=== PATIENT | male | born 1945 | race Caucasian/White ===

== ENCOUNTER → 2016-08-24 | Day surgery (SDC) | payer OTHER ==
[~2016-08-24] VITALS: Ht 165.1 cm; Wt 60.0 kg
[~2016-08-24] MED LIST: AMLODIPINE BESYLATE 5 MG TAB ONE; AMOX875T PO; ASPI81TA28 PO; CHOL100010 PO; FENTANYL CITRATE INJ 50 MCG/1 ML 2 ML VIAL ONE; FLUT1AER5 INH; GUAI1TAB75 PO; IPRASOL4 INH; LISI-729 PO; LISINOPRIL 5 MG TAB ONE; MIDAZOLAM HCL 1 MG/ML 2ML VIAL ONE; MULT-920 PO; OMEG10007 PO; PRED20TA PO; PSEU60TA80 PO; ROFL1TAB5 PO; SIMV40TA2 PO; TIOTCAP INH; VNTHFA/IN INH; ZNTT/150 PO
[2016-08-24 07:17] VITALS: BP 145/84; PULSE 73; TEMP 36.4; O2SAT 96; Ht 165.1 cm; Wt 60.0 kg
--- NOTE | 2016-08-24 09:03 | History & Physical Bridge Note ---
H&P Re-Evaluation Bridge Note: I have examined the patient, reviewed the History & Physical and in the interval since the performance of the History & Physical I have noted the following changes of clinical significance: No changes noted
--- NOTE | 2016-08-24 09:04 | Procedure Note ---
Pre-Mod Sedation Assessment General Date of Moderate Sedation: August 24, 2016. Vital Signs: Vital Signs Past 12 Hours Date Time Temp Pulse Resp B/P Pulse Ox O2 Delivery O2 Flow Rate FiO2 08/24/16 07:17 36.4 73 16 145/84 96 Room Air Review Cardiovascular: regular rate, rhythm, no edema, + systolic murmur Abdomen: normal bowel sounds, non tender, soft Lungs: chest non-tender, lungs clear, normal breath sounds Pre-Sedation Airway Assessment Oral Cavity: Dentures Short Thick Neck: No Hx of Sleep Apnea: No Smoking Status: Current Every Day Smoker Mallampati Classification: Class II ASA Classification: Class III Procedure Planning Contraindications-for Mod Sed: None Yes Notes The planned sedation has been discussed with the patient and consent obtained. I have identified the patient, determined the appropriateness of sedation and have assessed the patient immediately prior to the procedure. All medicine(s) and interventions are by my order.
--- NOTE | 2016-08-24 09:05 | Procedure Note ---
Post-Mod Sedation Assessment General Date of Moderate Sedation August 24, 2016. Vital Signs: Vital Signs Past 12 Hours Date Time Temp Pulse Resp B/P Pulse Ox O2 Delivery O2 Flow Rate FiO2 08/24/16 07:17 36.4 73 16 145/84 96 Room Air Review - Discharge Criteria Vital Signs Stable: Yes Alert/Oriented/Conversant: Yes Returned to Baseline Mental St: Yes Nausea Absent/Minimal: Yes Pain/Discomfort/Absent/Minimal: Yes Normal/Baseline Respirations: Yes Active Bleeding?: No Pt Received D/C Instructions: Yes Prescriptions Given: None Specific Proced. D/C Criteria Distal Pulses Present (Cardiac: Yes Groin site assessed-Card Cath: Yes Voided Prior To Discharge: Yes Discharged Patients Adult Escort/Transportation: Yes
--- NOTE | 2016-08-24 09:29 | Cardiac Catheterization ---
Procedure Note Procedure Date August 24, 2016. Pre-Procedure Diagnosis Angina, CAD, Valvular Disease AUC Score 8 Post-Procedure Diagnosis Severe CAD Procedure(s) Performed Coronary Angiography (Moderate sedation, Start time 0819, Stop time 0848) Stone Decorator Dr. Espinal Orthotic/Prosthetic Clinician(s) Fan COMMERCIAL SALES SPECIALIST, Sedation ROE Caballero Estimated Blood Loss 5cc Medication(s) Fentanyl, Versed, Lidocaine 1% Summary of Findings 85% mid LAD in-stent restenosis. 70% mid PDA 100% chronic diagonal stenosis. Hemodynamics Rest Ao: 157/66/101 Final Ao: 164/64/103 LV: N/A Recommendations CABG, valve replacement Specimens None Radiation Exposure (mGy) 313 Contrast (mls) 85 Procedural Complication(s) None Disposition City Treasurer Holding/Recovery ACC Data Cardiac Status Clinical evaluation leading to the procedure CAD Presntation: Stable angina Anginal Classification: CCS II Heart Failure: No Cardiogenic Shock w/in 24Hrs: No Cardiac Arrest w/in 24Hrs: No Imaging studies past 6 months: Yes Stress studies past 6 months: Yes Stress Testing w/SPECT MPI: Yes - Positive, Risk/Extent of Ischemia (High) Cardiac CTA: No Coronary Anatomy Dominant: Right Left Main (% Stenosis): Normal LAD (% Stenosis): Ostial (10%), Proximal (30%), Mid (60% in stent restenosis followed by 85% ), Distal (10%) D1 (% Stenosis): Ostial (100% with MARVIN 1 flow) Circumflex (% Stenosis): Ostial (small vessel, 40%), Proximal (10%), Mid (60%) , Distal (10%) RCA (% Stenosis): Ostial (High anterior origin. 0%), Proximal (10%), Mid (20%) , Distal (30% in-stent restenosis) R PDA (% Stenosis): Ostial (10%), Proximal (10%), Mid (70%), Distal (10% diffuse) R PL1 (% Stenosis): Ostial (Small vessel with mild luminal irregularities, 10%) Ramus (% Stenosis): Ostial (0%), Mid (10%), Distal (10%), Proximal (20%) Diagnostic Status: Elective Closure Device Percutaneous Entry Location: Femoral Closure Device: Mynx Recommendations: CABG, valve replacement Intraprocedure Events Significant Dissection: No Perforation: No
--- NOTE | 2016-08-24 09:49 | Discharge Instructions ---
Discharge Instructions Procedure Procedure Date: August 24, 2016. Reason for Visit: *Dr Espinal To Do* Abnormal Stress Test. Discharge Discharge Date: August 24, 2016. Last Recorded Wt (Kilograms): 60 Anesthesia Post Anesthesia Instructions: If you have had General Anesthesia or IV Sedation: * Do not drive today. * Resume driving when surgeon permits. * Do not make important decisions or sign legal documents today. * Call surgeon for: 1. Temperature elevations greater than 101 degrees F. 2. Uncontrollable pain. 3. Excessive bleeding. 4. Persistent nausea and vomiting. 5. Medication intolerance (nausea, vomiting or rash). * For nausea and vomiting use only clear liquids such as: tea, soda, bouillon until nausea subsides, then gradually increase diet as tolerated. * If you have any concerns or questions, call your surgeon's office. If physician is unavailable and it is an emergency, call 911 or go to the nearest emergency room. Instructions Activity Recommendations: limitations as noted below Return to School/Work: with the following limitations Recommended Home Diet: resume previous diet Allergies: Coded Allergies: Baclofen (Verified Allergy, Unknown, HIVES/RASH, 06/02/15) Clarithromycin (Verified Allergy, Unknown, RASH/HIVES, 06/02/15) Erythromycin (Verified Allergy, Unknown, FEVER AND BODY ACHES, 06/02/15) Isosorbide (Verified Allergy, Unknown, RASH/FEVER, 06/02/15) Uncoded Allergies: STEROID (Allergy, Unknown, HIVES, 05/27/15) Provider Instructions ACTIVITY RECOMMENDATIONS: It is common to feel weak and fatigue for a few days. * Do not drive or operate any motorized equipment for the next three days. * Limit stair usage (2 or 3 trips a day only) for the next three days. * Do not lift anything heavier than 10 pounds for the next three days. * Do not engage in vigorous exercise or any sports for the next five days. * You may shower the day after your procedure, but do not immerse the area for three days. Cleanse the site gently with soap and water. SPECIAL CARE INSTRUCTIONS: * You may replace the pressure dressing or band-aid the morning after the procedure. * After your procedure, it is normal to have a small bruise or small lump at the site. Examine your site daily for any change in the bruise or lump, redness, swelling, drainage or numbness. Notify your doctor if any change. BLEEDING: * If there is a small amount of bleeding at the site, lie down and apply firm pressure with a clean cloth for ten minutes. When the bleeding stops, lie quietly keeping the procedure limb straight for six hours. Notify your doctor as soon as possible. * If the bleeding does not stop after ten minutes or if there is a large amount of bleeding or spurting, call 911 immediately. Continue to lie down and hold firm pressure until help arrives. SKIN IRRITATION: * You may experience some redness and/or swelling in the area where radiation was administered. If any skin irritation occurs, please contact your family physician. FOLLOW UP VISIT: Keep any scheduled doctor appointments. Follow Up Follow-up with: Jesse Castanon PA-C as scheduled. Gilles Cabrales Recommendations: Call your doctor if: * Temperature above 101 degrees * Pain not relieved by pain medicine ordered * There is increased drainage or redness from any incision * You have any unanswered questions or concerns. Your Doctors Instructions noted above were prepared by provider Leo Espinal. Patient Signature Section: Patient Instructions Signature Page Bret Bacon Patient (or Guardian) Signature/Date: I have read and understand the instructions given to me by my caregivers. Caregiver/RN/Doctor Signature/Date: The above-named patient and/or guardian has received patient instructions on this date. + Original Patient Signature Page (only) stays with chart. Please make copy for patient.
[2016-08-24 12:30] VITALS: BP 141/68; PULSE 71; O2SAT 96
== END | disposition home or self-care (01) ==
LOC: C.CATH 06:50
PROVIDERS: ATTEND Internal Medicine Cardiovascular Disease
DX: I25.709 Atherosclerosis of coronary artery bypass graft(s), unspecified, with unspecified angina pectoris (principal); Q23.1 Congenital insufficiency of aortic valve; I05.2 Rheumatic mitral stenosis with insufficiency; K21.9 Gastro-esophageal reflux disease without esophagitis; J44.9 Chronic obstructive pulmonary disease, unspecified; I10 Essential (primary) hypertension; E78.5 Hyperlipidemia, unspecified; E55.9 Vitamin D deficiency, unspecified; F17.200 Nicotine dependence, unspecified, uncomplicated; Z82.49 Family history of ischemic heart disease and other diseases of the circulatory system; Z79.82 Long term (current) use of aspirin; Z79.899 Other long term (current) drug therapy

== ENCOUNTER → 2016-10-21 | Outpatient (CLI) | payer OTHER ==
[~2016-10-21] MED LIST changes: -AMLODIPINE BESYLATE 5 MG TAB ONE; -FENTANYL CITRATE INJ 50 MCG/1 ML 2 ML VIAL ONE; -LISINOPRIL 5 MG TAB ONE; -MIDAZOLAM HCL 1 MG/ML 2ML VIAL ONE
[2016-10-21 14:01] LABS: ARTERIAL BLD GAS O2 SATURATION 94.5 % (90-95); ARTERIAL BLOOD GAS BASE EXCESS 1.3 mEq/L (-9-1.8); ARTERIAL BLOOD GAS HCO3 25 mmol/L (19-24); ARTERIAL BLOOD GAS PO2 71 mm/Hg (80-95); ARTERIAL BLOOD GAS pH 7.45 (7.35-7.45)
[2016-10-21 14:02] LABS: ALLEN TEST POS (POS); O2 ADMINISTRATION ROOM AIR
== END | disposition home or self-care (01) ==
LOC: C.LAB 13:21
PROVIDERS: ATTEND Thoracic Surgery (Cardiothoracic Vascular Surgery)
DX: I25.10 Atherosclerotic heart disease of native coronary artery without angina pectoris (principal); Q23.1 Congenital insufficiency of aortic valve; I35.0 Nonrheumatic aortic (valve) stenosis

== ENCOUNTER 2017-06-08 22:45 | Inpatient (IN) | payer OTHER ==
[~2017-06-08] VITALS: Ht 165.1 cm; Wt 63.6 kg
[~2017-06-08 22:45] MED LIST changes: +RANI150T85 PO; -ZNTT/150 PO
[2017-06-08] MEDS ORDERED: METHYLPREDNISOLONE 125 MG VIAL IV STA (22:54)
[2017-06-08] MEDS ORDERED: ALBUT/IPRATROP 3MG/0.5MG NEB 3 ML VIAL INH ONE (23:00)
[2017-06-08 23:09] VITALS: PULSE 84; O2SAT 96
[2017-06-08 23:14] LABS: BASO % 0.6 %; BASO ABS # 0.07 K/uL (0-0.2); EOS % 5.7 %; EOS ABS # 0.67 K/uL (0-0.5); HEMOGLOBIN 15.5 g/dL (14.0-18.0); IG# 0.04 K/uL (0.00-0.02); LYMPH % 28.2 %; LYMPH ABS # 3.31 K/uL (1.2-3.4); MEAN CELL VOLUME 88.6 fL (80-100); MEAN CORPUSCULAR HEMOGLOBIN 29.9 pg (25-34); MEAN CORPUSCULAR HGB CONC 33.7 g/dl (32-36); MEAN PLATELET VOLUME 11.5 fL (7.4-10.4); MONO % 8.4 %; MONO ABS # 0.99 K/uL (0.11-0.59); NEUT % 56.8 %; NEUT ABS # 6.66 K/uL (1.4-6.5); PLATELET COUNT 229 K/uL (130-400); RED CELL DISTRIBUTION WIDTH CV 12.8 % (11.5-14.5); RED CELL DISTRIBUTION WIDTH SD 41.2 fL (36.4-46.3); WHITE BLOOD COUNT 11.74 K/uL (4.8-10.8)
--- NOTE | 2017-06-08 23:14 | EMERGENCY ROOM VISIT NOTE ---
History Report prepared by Michelle: Nicolas Quispe Under the Supervision of: Dr. Miguel Whiting M.D. First contact with patient: 22:48 Stated Complaint: RESPIRATORY DISTRESS History of Present Illness The patient is a 72 year old male who presents to the Emergency Room with complaints of shortness of breath that began 4 hours ago. The patient states he has been coughing for the past 3 days. Today, his family states that the patient went outside and felt it was tight for him to breathe, with his current oxygen saturation at 86%. The patient states he has increased swelling in his legs. He is taking Lasix, Coumadin, and Aspirin (every other day), and uses an inhaler to manage his COPD. He states that his shortness of breath worsens with walking. He states that sitting up alleviates his symptoms. He denies chest pain , falls or injuries, and abdominal pain. He denies steroid use, blood clots in his lungs or legs, or oxygen use at home. Of note, he had a CABG on 10/28/[address] [place] [address] Dunn (cow valve). Source of History: patient, family Onset: 4 hours ago Position: other (lungs) Symptom Intensity: pain rated as 0/10 Quality: other (tightness) Timing: constant Modifying Factors (Worsening): movement Modifying Factors (Relieving): other (sitting upright) Associated Symptoms: + cough (3 days), + SOB, No chest pain, No abdominal pain Note: Patient reports increased swelling in his legs. Patient denies falls and injuries, and blood clots in his lungs and legs. Review of Systems See HPI for pertinent positives & negatives. A total of 10 systems reviewed and were otherwise negative. Past Medical & Surgical Medical Problems: (1) COPD (chronic obstructive pulmonary disease) (2) COPD exacerbation (3) Diabetes (4) Heart disease (5) Pneumonia Surgical Problems: (1) S/P CABG (coronary artery bypass graft) Social History Smoking Status: Former Smoker (Currently does not use any tobacco products) Alcohol Use: other (1 can of beer daily) Marital Status: Housing Status: lives with significant other Occupation Status: retired Current/Historical Medications Scheduled Albuterol Hfa (Ventolin Hfa), 2 PUFFS INH BID Amoxicillin & Pot Clavulanate (Augmentin 875-125 mg), 1 TAB PO BID Aspirin (Aspirin Ec), 81 MG PO Q2D Atorvastatin (Lipitor), 40 MG PO QPM Cholecalciferol (Vitamin D), 1,000 INTER.UNIT PO QAM Guaifenesin La (Guaifenesin Er), 600 MG PO DAILY Losartan Potassium (Cozaar), 12.5 MG PO DAILY Metoprolol Succ (Toprol Xl) (Toprol-Xl ), 100 MG PO DAILY Prednisone (Prednisone), 1 TAB PO DAILY Ranitidine (Zantac), 150 MG PO BID Roflumilast (Daliresp), 500 MCG PO QAM Tamsulosin Hcl (Flomax), 0.4 MG PO DAILY Tiotropium [place] (Spiriva Handihaler), 1 CAP INH HS Warfarin Sod (Jantoven), 5 MG PO 2XWK Warfarin Sod (Jantoven), 3.7 MG PO 5XWK Scheduled PRN Ipratropium-Albuterol (Duoneb), 1 TREATMENT INH Q4H PRN for sob/wheezing Allergies Coded Allergies: Baclofen (Verified Allergy, Unknown, HIVES/RASH, 06/02/15) Clarithromycin (Verified Allergy, Unknown, RASH/HIVES, 06/02/15) Erythromycin (Verified Allergy, Unknown, FEVER AND BODY ACHES, 06/02/15) Isosorbide Nitrate (Verified Allergy, Unknown, RASH/FEVER, 06/02/15) Uncoded Allergies: STEROID (Allergy, Unknown, HIVES, 05/27/15) Physical Exam Vital Signs Date Time Temp Pulse Resp B/P (MAP) Pulse Ox O2 Delivery O2 Flow Rate FiO2 06/09/17 00:47 89 18 148/80 94 Nasal Cannula 2.0 06/08/17 23:50 99 18 166/75 96 Nasal Cannula 2.0 06/08/17 23:09 84 22 96 Nasal Cannula 4.0 06/08/17 23:08 Room Air 06/08/17 23:05 36.6 92 30 187/107 86 Room Air 06/08/17 23:00 76 Physical Exam GENERAL: Patient is unwell appearing and in moderate distress. EYES: No scleral icterus, unremarkable pupils. ENT: Mucous membranes moist, no nasal congestion. NECK: No masses appreciated, no meningismus, trachea is midline. RESPIRATORY: Dyspneic and tachypneic with tight lung sounds bilaterally. Inspiratory and expiratory wheezing. CARDIOVASCULAR: Mildly tachycardiac with periodic irregular beats. Slight systolic murmur appreciated. GASTROINTESTINAL: Abdomen soft, nontender, no peritonitis. Bowel sounds positive. No masses appreciated. Old scarring of abdomen. BACK: No midline tenderness, no CVA tenderness EXTREMITIES: Trace edema of bilateral lower shins. Normal motion all extremities , no cyanosis. NEUROLOGIC: Alert and oriented, no acute motor or sensory deficits, no focal weakness, cranial nerves grossly intact. SKIN: No rash, no jaundice, no diaphoresis. Medical Decision & Procedures ER Provider Diagnostic Interpretation: X ray results are stated below per my interpretation: Chest: 1 view: No infiltrate, no effusion, normal cardiac border. Laboratory Results 06/08/17 22:25 Red Blood Count 5.19, Mean Corpuscular Volume 88.6, Mean Corpuscular Hemoglobin 29.9, Mean Corpuscular Hemoglobin Concent 33.7, Mean Platelet Volume 11.5, Neutrophils (%) (Auto) 56.8, Lymphocytes (%) (Auto) 28.2, Monocytes (%) (Auto) 8.4, Eosinophils (%) (Auto) 5.7, Basophils (%) (Auto) 0.6, Neutrophils # (Auto) 6.66, Lymphocytes # (Auto) 3.31, Monocytes # (Auto) 0.99, Eosinophils # (Auto) 0.67, Basophils # (Auto) 0.07 06/08/17 22:25 Test 06/08/17 22:25 06/08/17 23:50 White Blood Count 11.74 K/uL (4.8-10.8) Red Blood Count 5.19 M/uL (4.7-6.1) Hemoglobin 15.5 g/dL (14.0-18.0) Hematocrit 46.0 % (42-52) Mean Corpuscular Volume 88.6 fL (80-100) Mean Corpuscular Hemoglobin 29.9 pg (25-34) Mean Corpuscular Hemoglobin Concent 33.7 g/dl (32-36) Platelet Count 229 K/uL (130-400) Mean Platelet Volume 11.5 fL (7.4-10.4) Neutrophils (%) (Auto) 56.8 % Lymphocytes (%) (Auto) 28.2 % Monocytes (%) (Auto) 8.4 % Eosinophils (%) (Auto) 5.7 % Basophils (%) (Auto) 0.6 % Neutrophils # (Auto) 6.66 K/uL (1.4-6.5) Lymphocytes # (Auto) 3.31 K/uL (1.2-3.4) Monocytes # (Auto) 0.99 K/uL (0.11-0.59) Eosinophils # (Auto) 0.67 K/uL (0-0.5) Basophils # (Auto) 0.07 K/uL (0-0.2) RDW Standard Deviation 41.2 fL (36.4-46.3) RDW Coefficient of Variation 12.8 % (11.5-14.5) Immature Granulocyte % (Auto) 0.3 % Immature Granulocyte # (Auto) 0.04 K/uL (0.00-0.02) Prothrombin Time 21.4 SECONDS (9.0-12.0) Prothromb Time International Ratio 2.1 (0.9-1.1) Activated Partial Thromboplast Time 35.0 SECONDS (21.0-31.0) Partial Thromboplastin Ratio 1.3 Anion Gap 7.0 mmol/L (3-11) Est Creatinine Clear Calc Drug Dose 50.6 ml/min Estimated GFR () 74.3 Estimated GFR (Non- 64.1 BUN/Creatinine Ratio 10.7 (10-20) Calcium Level 9.4 mg/dl (8.5-10.1) Magnesium Level 2.3 mg/dl (1.8-2.4) Troponin I < 0.015 ng/ml (0-0.045) Pro-B-Type Natriuretic Peptide 1119 pg/ml (0-900) Influenza Type A (RT-PCR) Neg for Influ A (NEG) Influenza Type B (RT-PCR) Neg for Influ B (NEG) Laboratory results as reviewed by me. Medications Administered Medications (Trade) Dose Ordered Sig/An Route Start Time Stop Time Status Last Admin Dose Admin Methylprednisolone Sodium Succinate (Solu-Medrol IV) 125 mg NOW STAT IV 06/08/17 22:54 06/08/17 22:56 DC 06/08/17 23:44 125 MG Albuterol/ Ipratropium (Duoneb) 12 ml ONE ONCE INH 06/08/17 23:00 06/08/17 23:01 DC 06/08/17 23:08 12 ML ECG Per My Interpretation Indication: SOB/dyspnea Rate (beats per minute): 82 Rhythm: normal sinus Findings: PVC, ST depression (lateral and inferior (mild)), other (nonspecific ST elevation in V1 and V2 less than 1 mm; QTc of 448; large T waves) ED Course 2248: The patient was evaluated in room A11B. A complete history and physical exam was performed. 2323: I checked on the patient and his wheezing is much improved. His family is by his bedside. 2342: I checked on the patient and he still has wheezing in his right lobe. He is mildly dyspneic. We discussed admission vs discharge due to hypoxia, shortness of breath, and continued wheezing. We have paged the [facility] hospitalist. 2355: I discussed the patient's case with Dr. Lopez. The patient will be evaluated for further treatment and disposition. 0106: Upon reevaluation, the patient is doing well. I discussed results and treatment plan with the patient and Dr. Lopez. He verbalized understanding and agreement with the treatment plan. The patient will be evaluated for further management. Medical Decision Differential: Infectious, Reactive Airway Disease, Pneumonia, Pneumothorax, COPD , CHF, ACS, Pulmonary Embolism, MSK, GI, Dissection, amongst other etiologies entertained. 72 yr old male with several days of mild cough acutely worsened with going in cold today. Notes swelling in legs which is minimal and his exam/work-up does not seem consistent with acute CHF. He exam is consistent with COPD exacerbations with tight lung sounds and quite hypoxic and unable to ambulate without becoming significantly dyspneic. CXR clear. Labs look OK. Doing much better after hour neb but still requiring NC O2. Took ABX prior to arrival. On blood thinner thus I feel PE unlikely. No evidence ACS at this time. No evidence pneumonia nor dissection. Hospitalist consulted for further management /treatment. Medication Reconcilliation Current Medication List: was personally reviewed by me Blood Pressure Screening Patient's blood pressure: Elevated blood pressure Blood pressure disposition: Elevated BP felt to be situational (He will be monitored by the hospitalist) Consults Time Called: [phone] Consulting Physician: Dr. Lopez-[facility] Hospitalist Returned Call: [phone] I discussed the patient's case. The patient will be evaluated for further treatment and disposition. Impression Primary Impression: COPD with acute exacerbation Scribe Attestation The scribe's documentation has been prepared under my direction and personally reviewed by me in its entirety. I confirm that the note above accurately reflects all work, treatment, procedures, and medical decision making performed by me. Departure Information Dispostion Being Evaluated By Hospitalist Referrals John Sanz M.D. (PCP)
[2017-06-08 23:24] LABS: INR 2.1 (0.9-1.1)
[2017-06-08 23:32] LABS: BLOOD UREA NITROGEN 12 mg/dl (7-18); CALCIUM 9.4 mg/dl (8.5-10.1); CARBON DIOXIDE 25 mmol/L (21-32); CREATININE 1.13 mg/dl (0.60-1.40); GLUCOSE 138 mg/dl (70-99); POTASSIUM 3.6 mmol/L (3.5-5.1); SODIUM 139 mmol/L (136-145)
[2017-06-09] VITALS (7 sets, daily range): BP systolic 129–150; BP diastolic 60–72; PULSE 78–101; TEMP 36.4–36.8; O2SAT 94–96; Ht 165.1 cm; Wt 63.6 kg
[2017-06-09] MEDS ORDERED: LOSA1TAB PO (00:39)
[2017-06-09] MEDS ORDERED: ATOR-24 PO (00:42)
[2017-06-09] MEDS ORDERED: POLYETHYLENE (MIRALAX) 17 GM PACK PO PRN (00:45)
[2017-06-09] MEDS ORDERED: ACETAMINOPHEN 325 MG TAB PO PRN (00:45)
[2017-06-09] MEDS ORDERED: ONDANSETRON INJ 2 MG/ML 2 ML VIAL IV PRN (00:45)
[2017-06-09] MEDS ORDERED: LEVAQUIN 750MG / 150ML D5W IV SCH (00:45)
[2017-06-09] MEDS ORDERED: WARF2.5T8 PO ×2 (00:46→00:49)
[2017-06-09] MEDS ORDERED: TAMS0.4C38 PO (00:53)
[2017-06-09] MEDS ORDERED: METO100T44 PO (00:54)
--- NOTE | 2017-06-09 00:59 | History and Physical ---
History & Physical Date & Time of Service: Jun 09, 2017 at 00:50 Chief Complaint: Respiratory Distress Primary Care Physician: John Sanz M.D. History of Present Illness Source: patient, family, spouse, clinic records, hospital records The patient is a 72-year-old man who presents to the ER with reports of shortness of breath that began earlier this evening. The patient reports a chronic cough with no changes in recent days but does state that he had cold symptoms however he cannot clarify what those cold symptoms were. He does report some runny nose. He states his breathing became tight after exposure to cold air this evening. On presentation to the ER his oxygen saturation was 86% on room air in a patient not on supplemental oxygen at baseline. He reports his last exacerbation was approximately 6 months ago and was handled as an outpatient with a rescue kit. He denies recent hospitalization. He did have a recent CABG surgery in [place] with bioprosthetic aortic valve replacement. At that time he quit smoking cigarettes. Review of systems is otherwise negative for chest pain abdominal pain diarrhea nausea vomiting, sore throat, sinus congestion, or headaches. Past Medical/Surgical History Medical Problems: (1) AAA (abdominal aortic aneurysm) without rupture Status: Chronic (2) Amputated finger Status: Chronic (3) Atrial fibrillation Status: Chronic (4) CAD (coronary artery disease) Permanent Comment: s/p stents and CABG Status: Chronic (5) COPD (chronic obstructive pulmonary disease) Status: Chronic (6) H/O tobacco use, presenting hazards to health Status: Chronic Surgical Problems: (1) H/O heart valve replacement with bioprosthetic valve Status: Chronic (2) S/P CABG (coronary artery bypass graft) Status: Resolved Family History FH: brain tumor MOTHER FH: diabetes mellitus MOTHER BROTHER Social History Smoking Status: Former Smoker Smokeless Tobacco Use: Unknown Alcohol Use: socially Drug Use: none Marital Status: Housing status: lives with significant other Occupational Status: retired Immunizations History of Influenza Vaccine: Yes Influenza Vaccine Date: Mar 04, 2014 History of Tetanus Vaccine?: Yes Tetanus Immunization Date: Feb 04, 2013 History of Pneumococcal: Yes Pneumococcal Date: Jun 16, 2014 History of Hepatitis B Vaccine: Unknown Allergies Coded Allergies: Baclofen (Verified Allergy, Unknown, HIVES/RASH, 06/02/15) Clarithromycin (Verified Allergy, Unknown, RASH/HIVES, 06/02/15) Erythromycin (Verified Allergy, Unknown, FEVER AND BODY ACHES, 06/02/15) Isosorbide Nitrate (Verified Allergy, Unknown, RASH/FEVER, 06/02/15) Uncoded Allergies: STEROID (Allergy, Unknown, HIVES, 05/27/15) Home Medications Scheduled Albuterol Hfa (Ventolin Hfa), 2 PUFFS INH BID Amoxicillin & Pot Clavulanate (Augmentin 875-125 mg), 1 TAB PO BID Aspirin (Aspirin Ec), 81 MG PO DAILY Atorvastatin (Lipitor), 40 MG PO QPM Cholecalciferol (Vitamin D), 1,000 INTER.UNIT PO QAM Fluticasone Propionate (Inhala (Flovent Diskus), 1 PUFFS INH BID Guaifenesin La (Guaifenesin Er), 600 MG PO DAILY Losartan Potassium (Cozaar), 12.5 MG PO DAILY Metoprolol Succ (Toprol Xl) (Toprol-Xl ), 100 MG PO DAILY Prednisone (Prednisone), 1 TAB PO DAILY Ranitidine (Zantac), 150 MG PO BID Roflumilast (Daliresp), 500 MCG PO QAM Tamsulosin Hcl (Flomax), 0.4 MG PO DAILY Tiotropium [place] (Spiriva Handihaler), 1 CAP INH HS Warfarin Sod (Jantoven), 5 MG PO 2XWK Warfarin Sod (Jantoven), 3.7 MG PO 5XWK Scheduled PRN Ipratropium-Albuterol (Duoneb), 1 TREATMENT INH Q4H PRN for sob/wheezing Review of Systems At least 10 systems reviewed and negative except as indicated in HPI above. Physical Exam Vital Signs Date Time Temp Pulse Resp B/P (MAP) Pulse Ox O2 Delivery O2 Flow Rate FiO2 06/09/17 00:47 89 18 148/80 94 Nasal Cannula 2.0 06/08/17 23:50 99 18 166/75 96 Nasal Cannula 2.0 06/08/17 23:09 84 22 96 Nasal Cannula 4.0 06/08/17 23:08 Room Air 06/08/17 23:05 36.6 92 30 187/107 86 Room Air 06/08/17 23:00 76 General Appearance: WD/WN, no apparent distress Head: normocephalic, atraumatic Eyes: normal inspection, PERRL, sclerae normal, + pertinent finding (Eyes appear irritated) ENT: normal ENT inspection, TMs normal, pharynx normal Neck: supple, no adenopathy, no JVD, no carotid bruits, trachea midline Respiratory/Chest: chest non-tender, normal breath sounds, no respiratory distress, no accessory muscle use, + wheezing, + pertinent finding (Decreased breath sounds bilaterally) Cardiovascular: regular rate, rhythm, no edema, no gallop, no JVD, no murmur, normal peripheral pulses Abdomen/GI: normal bowel sounds, non tender, soft, no organomegaly Extremities/Musculoskelatal: normal inspection, no calf tenderness, normal capillary refill, no pedal edema, normal range of motion 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, no motor/sensory deficits, alert, normal mood/affect, oriented x 3 Skin: normal color, warm/dry, no rash Diagnostics Laboratory Results 06/08/17 22:25 Red Blood Count 5.19, Mean Corpuscular Volume 88.6, Mean Corpuscular Hemoglobin 29.9, Mean Corpuscular Hemoglobin Concent 33.7, Mean Platelet Volume 11.5, Neutrophils (%) (Auto) 56.8, Lymphocytes (%) (Auto) 28.2, Monocytes (%) (Auto) 8.4, Eosinophils (%) (Auto) 5.7, Basophils (%) (Auto) 0.6, Neutrophils # (Auto) 6.66, Lymphocytes # (Auto) 3.31, Monocytes # (Auto) 0.99, Eosinophils # (Auto) 0.67, Basophils # (Auto) 0.07 06/08/17 22:25 Test 06/08/17 22:25 06/08/17 23:50 White Blood Count 11.74 K/uL (4.8-10.8) Red Blood Count 5.19 M/uL (4.7-6.1) Hemoglobin 15.5 g/dL (14.0-18.0) Hematocrit 46.0 % (42-52) Mean Corpuscular Volume 88.6 fL (80-100) Mean Corpuscular Hemoglobin 29.9 pg (25-34) Mean Corpuscular Hemoglobin Concent 33.7 g/dl (32-36) Platelet Count 229 K/uL (130-400) Mean Platelet Volume 11.5 fL (7.4-10.4) Neutrophils (%) (Auto) 56.8 % Lymphocytes (%) (Auto) 28.2 % Monocytes (%) (Auto) 8.4 % Eosinophils (%) (Auto) 5.7 % Basophils (%) (Auto) 0.6 % Neutrophils # (Auto) 6.66 K/uL (1.4-6.5) Lymphocytes # (Auto) 3.31 K/uL (1.2-3.4) Monocytes # (Auto) 0.99 K/uL (0.11-0.59) Eosinophils # (Auto) 0.67 K/uL (0-0.5) Basophils # (Auto) 0.07 K/uL (0-0.2) RDW Standard Deviation 41.2 fL (36.4-46.3) RDW Coefficient of Variation 12.8 % (11.5-14.5) Immature Granulocyte % (Auto) 0.3 % Immature Granulocyte # (Auto) 0.04 K/uL (0.00-0.02) Prothrombin Time 21.4 SECONDS (9.0-12.0) Prothromb Time International Ratio 2.1 (0.9-1.1) Activated Partial Thromboplast Time 35.0 SECONDS (21.0-31.0) Partial Thromboplastin Ratio 1.3 Anion Gap 7.0 mmol/L (3-11) Est Creatinine Clear Calc Drug Dose 50.6 ml/min Estimated GFR () 74.3 Estimated GFR (Non- 64.1 BUN/Creatinine Ratio 10.7 (10-20) Calcium Level 9.4 mg/dl (8.5-10.1) Magnesium Level 2.3 mg/dl (1.8-2.4) Troponin I < 0.015 ng/ml (0-0.045) Pro-B-Type Natriuretic Peptide 1119 pg/ml (0-900) Results Past 24 Hours Test 06/08/17 22:25 06/08/17 23:50 Range/Units White Blood Count 11.74 4.8-10.8 K/uL Red Blood Count 5.19 4.7-6.1 M/uL Hemoglobin 15.5 14.0-18.0 g/dL Hematocrit 46.0 42-52 % Mean Corpuscular Volume 88.6 80-100 fL Mean Corpuscular Hemoglobin 29.9 25-34 pg Mean Corpuscular Hemoglobin Concent 33.7 32-36 g/dl Platelet Count 229 130-400 K/uL Mean Platelet Volume 11.5 7.4-10.4 fL Neutrophils (%) (Auto) 56.8 % Lymphocytes (%) (Auto) 28.2 % Monocytes (%) (Auto) 8.4 % Eosinophils (%) (Auto) 5.7 % Basophils (%) (Auto) 0.6 % Neutrophils # (Auto) 6.66 1.4-6.5 K/uL Lymphocytes # (Auto) 3.31 1.2-3.4 K/uL Monocytes # (Auto) 0.99 0.11-0.59 K/uL Eosinophils # (Auto) 0.67 0-0.5 K/uL Basophils # (Auto) 0.07 0-0.2 K/uL RDW Standard Deviation 41.2 36.4-46.3 fL RDW Coefficient of Variation 12.8 11.5-14.5 % Immature Granulocyte % (Auto) 0.3 % Immature Granulocyte # (Auto) 0.04 0.00-0.02 K/uL Prothrombin Time 21.4 9.0-12.0 SECONDS Prothromb Time International Ratio 2.1 0.9-1.1 Activated Partial Thromboplast Time 35.0 21.0-31.0 SECONDS Partial Thromboplastin Ratio 1.3 Sodium Level 139 136-145 mmol/L Potassium Level 3.6 3.5-5.1 mmol/L Chloride Level 107 98-107 mmol/L Carbon Dioxide Level 25 21-32 mmol/L Anion Gap 7.0 3-11 mmol/L Blood Urea Nitrogen 12 7-18 mg/dl Creatinine 1.13 0.60-1.40 mg/dl Est Creatinine Clear Calc Drug Dose 50.6 ml/min Estimated GFR () 74.3 Estimated GFR (Non- 64.1 BUN/Creatinine Ratio 10.7 10-20 Random Glucose 138 70-99 mg/dl Calcium Level 9.4 8.5-10.1 mg/dl Magnesium Level 2.3 1.8-2.4 mg/dl Troponin I < 0.015 0-0.045 ng/ml Pro-B-Type Natriuretic Peptide 1119 0-900 pg/ml Diagnostic Radiology CHEST ONE VIEW PORTABLE CLINICAL HISTORY: SHOB dyspnea COMPARISON STUDY: None FINDINGS: Slight bilateral interstitial prominence. No focal infiltrate. Prior median sternotomy. IMPRESSION: Slight interstitial prominence with no focal infiltrate. EKG Sinus rhythm with sinus arrhythmia 82 bpm Impression Assessment and Plan 72-year-old male with COPD presents with shortness of breath acutely beginning several several hours prior to arrival. Patient was admitted for COPD exacerbation. 1. COPD exacerbation-possibly viral etiology versus environmental exposure to cold air. No wheezing on exam with decreased blood breath sounds throughout. No respiratory distress, however, patient requiring 2 L nasal cannula and no supplemental oxygen at baseline. Covering with Levaquin, flu PCR is negative, Solu-Medrol 40 IV every 8, scheduled bronchodilator therapy. Continue Daliresp. Flovent held while on steroids. 2. CAD status post CABG-PCI in the past, stable no chest pain. Continue medical management with aspirin, Lipitor. 3. Chronic atrial fibrillation-rate controlled on beta-everette, anticoagulated on Coumadin. DVT prophylaxis-Coumadin Full code per my discussion with patient on admission [facility] Res[facility] Status VTE Prophylaxis Will order VTE Prophylaxis: Yes
[2017-06-09 01:12] LABS: INFLUENZA A PCR Neg for Influ A (NEG); INFLUENZA B PCR Neg for Influ B (NEG)
[2017-06-09] MEDS: ALBUT/IPRATROP 3MG/0.5MG NEB 3 ML VIAL NEB SCH ×3 (01:21→14:26)
[2017-06-09] MEDS ORDERED: LEVOFLOXACIN 750MG / D5W IV SCH (02:00)
--- NOTE | 2017-06-09 06:32 | DIAGNOSTIC IMAGING REPORT ---
CHEST ONE VIEW PORTABLE CLINICAL HISTORY: SHOB dyspnea COMPARISON STUDY: None FINDINGS: Slight bilateral interstitial prominence. No focal infiltrate. Prior median sternotomy. IMPRESSION: Slight interstitial prominence with no focal infiltrate. The above report was generated using voice recognition software. It may contain grammatical, syntax or spelling errors. Electronically signed by: Jesse Alvarez M.D. 06/09/2017 6:31 AM Dictated Date/Time: 06/09/2017 6:30 AM
[2017-06-09] MEDS ORDERED: FLUT1AER5 INH (07:41)
[2017-06-09] MEDS ORDERED: CHOLECALCIFEROL 1000 INTER.UNIT TAB PO SCH (08:00)
[2017-06-09] MEDS ORDERED: METOPROLOL SUCC 50MG EXT REL TAB PO SCH (08:00)
[2017-06-09] MEDS ORDERED: LOSARTAN POTASSIUM 25 MG TAB PO SCH (08:00)
[2017-06-09] MEDS ORDERED: TAMSULOSIN HCL 0.4 MG CAP PO SCH (08:00)
[2017-06-09] MEDS ORDERED: GUAIFENESIN 600 MG TABCR PO SCH (08:00)
[2017-06-09] MEDS ORDERED: ASPIRIN 81 MG ECTAB PO SCH (08:00)
[2017-06-09] MEDS ORDERED: ROFLUMILAST 500 MCG TAB PO SCH (08:00)
[2017-06-09] MEDS ORDERED: RANITIDINE HCL 150 MG TAB PO SCH (08:00)
[2017-06-09] MEDS: METHYLPREDNISOLONE IV 40 MG in SYRINGE 0 ML IV SCH ×2 (08:10→15:34)
[2017-06-09] MEDS ORDERED: PRD20 OR ×2 (15:52→15:53)
[2017-06-09] MEDS ORDERED: LEVO-459 OR (15:57)
[2017-06-09] MEDS ORDERED: WARFARIN SOD 5 MG TAB PO SCH (16:00)
--- NOTE | 2017-06-09 16:00 | Progress Note ---
Internal Med Progress Note Date of Service: Jun 09, 2017. Provider Documentation: SUBJECTIVE: Patient reports breathing is much better. Breathing on room air since this AM. Reports no difficulties with ambulation on room air. Patient counseled about prevent cold exposure as trigger to cough. Patient counseled on hospital follow up and discharge plans General Appearance: no apparent distress Head: normocephalic, atraumatic Eyes: EOMI ENT: normal ENT inspection Neck: supple, no adenopathy, no JVD, no carotid bruits, trachea midline Respiratory/Chest: chest non-tender, normal breath sounds, no respiratory distress, no accessory muscle use, clear to auscultation Cardiovascular: regular rate, rhythm, no edema, no gallop, no JVD, no murmur, normal peripheral pulses Abdomen/GI: normal bowel sounds, non tender, soft, no organomegaly Extremities/Musculoskelatal: normal inspection, no calf tenderness, normal capillary refill, no pedal edema, normal range of motion 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 Chest X ray on admission: Slight bilateral interstitial prominence. No focal infiltrate. Prior median sternotomy Patient subsequently admitted to the hospital. Patient feeling better after solumedrol and nebulizer treatments and since the morning time on 06/09/17 is breathing on room air Discharge diagnosis COPD exacerbation CAD status post CABG-PCI in the past, stable no chest pain Chronic atrial fibrillation-rate controlled on beta-everette, anticoagulated on Coumadin. Patient discharged with prescription for prednisone and levofloxacin and follow up appointments Follow up appointments 06/14/2017 2:00 PM Doyle Dawn MD Internal Medicine [facility] 06/26/2017 2:45 PM [facility], [facility] 07/11/2017 2:00 PM SANTOS Pena Pulmonary Medicine, [facility] please call [facility] appointment line [phone] if appointments need to be re-scheduled Vital Signs: Date Time Temp Pulse Resp B/P (MAP) Pulse Ox O2 Delivery O2 Flow Rate FiO2 06/09/17 15:52 36.8 101 16 94 Room Air 06/09/17 14:54 36.8 101 16 129/60 (83) 94 Room Air 06/09/17 14:26 96 16 96 Room Air 06/09/17 13:22 96 Room Air 06/09/17 08:00 Nasal Cannula 1.0 06/09/17 07:22 36.5 88 16 150/72 (98) 96 Nasal Cannula 1.5 06/09/17 07:04 82 16 96 Nasal Cannula 1.0 06/09/17 02:00 36.4 78 20 143/66 96 Nasal Cannula 2.0 06/09/17 01:28 36.6 74 18 130/66 96 06/09/17 01:26 74 18 130/66 96 Nasal Cannula 2.0 06/09/17 00:47 89 18 148/80 94 Nasal Cannula 2.0 06/08/17 23:50 99 18 166/75 96 Nasal Cannula 2.0 06/08/17 23:09 84 22 96 Nasal Cannula 4.0 06/08/17 23:08 Room Air 06/08/17 23:05 36.6 92 30 187/107 86 Room Air 06/08/17 23:00 76 Lab Results: Results Past 24 Hours Test 06/08/17 22:25 06/08/17 23:50 Range/Units White Blood Count 11.74 4.8-10.8 K/uL Red Blood Count 5.19 4.7-6.1 M/uL Hemoglobin 15.5 14.0-18.0 g/dL Hematocrit 46.0 42-52 % Mean Corpuscular Volume 88.6 80-100 fL Mean Corpuscular Hemoglobin 29.9 25-34 pg Mean Corpuscular Hemoglobin Concent 33.7 32-36 g/dl Platelet Count 229 130-400 K/uL Mean Platelet Volume 11.5 7.4-10.4 fL Neutrophils (%) (Auto) 56.8 % Lymphocytes (%) (Auto) 28.2 % Monocytes (%) (Auto) 8.4 % Eosinophils (%) (Auto) 5.7 % Basophils (%) (Auto) 0.6 % Neutrophils # (Auto) 6.66 1.4-6.5 K/uL Lymphocytes # (Auto) 3.31 1.2-3.4 K/uL Monocytes # (Auto) 0.99 0.11-0.59 K/uL Eosinophils # (Auto) 0.67 0-0.5 K/uL Basophils # (Auto) 0.07 0-0.2 K/uL RDW Standard Deviation 41.2 36.4-46.3 fL RDW Coefficient of Variation 12.8 11.5-14.5 % Immature Granulocyte % (Auto) 0.3 % Immature Granulocyte # (Auto) 0.04 0.00-0.02 K/uL Prothrombin Time 21.4 9.0-12.0 SECONDS Prothromb Time International Ratio 2.1 0.9-1.1 Activated Partial Thromboplast Time 35.0 21.0-31.0 SECONDS Partial Thromboplastin Ratio 1.3 Sodium Level 139 136-145 mmol/L Potassium Level 3.6 3.5-5.1 mmol/L Chloride Level 107 98-107 mmol/L Carbon Dioxide Level 25 21-32 mmol/L Anion Gap 7.0 3-11 mmol/L Blood Urea Nitrogen 12 7-18 mg/dl Creatinine 1.13 0.60-1.40 mg/dl Est Creatinine Clear Calc Drug Dose 50.6 ml/min Estimated GFR () 74.3 Estimated GFR (Non- 64.1 BUN/Creatinine Ratio 10.7 10-20 Random Glucose 138 70-99 mg/dl Calcium Level 9.4 8.5-10.1 mg/dl Magnesium Level 2.3 1.8-2.4 mg/dl Troponin I < 0.015 0-0.045 ng/ml Pro-B-Type Natriuretic Peptide 1119 0-900 pg/ml Influenza Type A (RT-PCR) Neg for Influ A NEG Influenza Type B (RT-PCR) Neg for Influ B NEG
--- NOTE | 2017-06-09 16:10 | Discharge Instructions ---
Discharge Instructions Date of Service Jun 09, 2017. Admission Reason for Admission: Copd Exacerbation Discharge Discharge Diagnosis / Problem: COPD excerbation Discharge Goals Goal(s): Improve function, Improve disease control Activity Recommendations Activity Limitations: per Instructions/Follow-up section Shower/Bathe: no limitations . Instructions / Follow-Up Instructions / Follow-Up Hospital Course 72-year-old man who presents to the ER at night with reports of shortness of breath that began in the evening on 06/08/17 with exposure to cold air. Chest X ray on admission: Slight bilateral interstitial prominence. No focal infiltrate. Prior median sternotomy Patient subsequently admitted to the hospital. Patient feeling better after solumedrol and nebulizer treatments and since the morning time on 06/09/17 is breathing on room air Discharge diagnosis COPD exacerbation CAD status post CABG-PCI in the past, stable no chest pain Chronic atrial fibrillation-rate controlled on beta-everette, anticoagulated on Coumadin. Patient discharged with prescription for prednisone and levofloxacin and follow up appointments Follow up appointments 06/14/2017 2:00 PM Doyle Dawn MD Internal Medicine [facility] 06/26/2017 2:45 PM [facility]/11/2017 2:00 PM SANTOS Pena Pulmonary Medicine, [facility] please call [facility] appointment line [phone] if appointments need to be re-scheduled Current Hospital Diet Patient's current hospital diet: Low Sodium Diet (2gm Na) Discharge Diet Recommended Diet: Low Sodium Diet (2gm Na) Pending Studies Studies pending at discharge: no Laboratory Results 06/08/17 22:25 Red Blood Count 5.19, Mean Corpuscular Volume 88.6, Mean Corpuscular Hemoglobin 29.9, Mean Corpuscular Hemoglobin Concent 33.7, Mean Platelet Volume 11.5, Neutrophils (%) (Auto) 56.8, Lymphocytes (%) (Auto) 28.2, Monocytes (%) (Auto) 8.4, Eosinophils (%) (Auto) 5.7, Basophils (%) (Auto) 0.6, Neutrophils # (Auto) 6.66, Lymphocytes # (Auto) 3.31, Monocytes # (Auto) 0.99, Eosinophils # (Auto) 0.67, Basophils # (Auto) 0.07 06/08/17 22:25 Test 06/08/17 22:25 06/08/17 23:50 White Blood Count 11.74 K/uL (4.8-10.8) Red Blood Count 5.19 M/uL (4.7-6.1) Hemoglobin 15.5 g/dL (14.0-18.0) Hematocrit 46.0 % (42-52) Mean Corpuscular Volume 88.6 fL (80-100) Mean Corpuscular Hemoglobin 29.9 pg (25-34) Mean Corpuscular Hemoglobin Concent 33.7 g/dl (32-36) Platelet Count 229 K/uL (130-400) Mean Platelet Volume 11.5 fL (7.4-10.4) Neutrophils (%) (Auto) 56.8 % Lymphocytes (%) (Auto) 28.2 % Monocytes (%) (Auto) 8.4 % Eosinophils (%) (Auto) 5.7 % Basophils (%) (Auto) 0.6 % Neutrophils # (Auto) 6.66 K/uL (1.4-6.5) Lymphocytes # (Auto) 3.31 K/uL (1.2-3.4) Monocytes # (Auto) 0.99 K/uL (0.11-0.59) Eosinophils # (Auto) 0.67 K/uL (0-0.5) Basophils # (Auto) 0.07 K/uL (0-0.2) RDW Standard Deviation 41.2 fL (36.4-46.3) RDW Coefficient of Variation 12.8 % (11.5-14.5) Immature Granulocyte % (Auto) 0.3 % Immature Granulocyte # (Auto) 0.04 K/uL (0.00-0.02) Prothrombin Time 21.4 SECONDS (9.0-12.0) Prothromb Time International Ratio 2.1 (0.9-1.1) Activated Partial Thromboplast Time 35.0 SECONDS (21.0-31.0) Partial Thromboplastin Ratio 1.3 Anion Gap 7.0 mmol/L (3-11) Est Creatinine Clear Calc Drug Dose 50.6 ml/min Estimated GFR () 74.3 Estimated GFR (Non- 64.1 BUN/Creatinine Ratio 10.7 (10-20) Calcium Level 9.4 mg/dl (8.5-10.1) Magnesium Level 2.3 mg/dl (1.8-2.4) Troponin I < 0.015 ng/ml (0-0.045) Pro-B-Type Natriuretic Peptide 1119 pg/ml (0-900) Influenza Type A (RT-PCR) Neg for Influ A (NEG) Influenza Type B (RT-PCR) Neg for Influ B (NEG) Medical Emergencies . Who to Call and When: Medical Emergencies: If at any time you feel your situation is an emergency, please call 911 immediately. . Non-Emergent Contact Non-Emergency issues call your: Primary Care Provider . . "Provider Documentation" section prepared by Stepan Van. .
--- NOTE | 2017-06-09 16:11 | Discharge Summary ---
Discharge Summary Date of Service Jun 09, 2017. Discharge Summary Admission Date: Jun 09, 2017 at 00:48 Discharge Date: Jun 09, 2017 Discharge Disposition: Home Principal Diagnosis: COPD exacerbation Secondary Diagnoses/Problems: CAD status post CABG-PCI in the past, stable no chest pain Chronic atrial fibrillation-rate controlled on beta-everette, anticoagulated on Coumadin. Medication Reconciliation New Medications: Levofloxacin (Levaquin) 500 Mg Tab 1 TAB OR DAILY for 7 Days, #7 TAB Prednisone (Prednisone) 20 Mg Tab 0 OR DAILY for 6 Days, #7 TAB Take 40 mg daily x 2 days, 20 mg daily x 2 days, 10 mg daily x 2 days Continued Medications: Albuterol Hfa (Ventolin Hfa) 200 Puffs/09709 Mcg Aers 2 PUFFS INH BID, #1 INHALER Aspirin (Aspirin Ec) 81 Mg Tab 81 MG PO DAILY Atorvastatin (Lipitor) 40 Mg Tab 40 MG PO QPM, TAB Cholecalciferol (Vitamin D) 1,000 Inter.unit Tab 1000 INTER.UNIT PO QAM, TAB Fluticasone Propionate (Inhala (Flovent Diskus) 100 Mcg/Blist Aer 1 PUFFS INH BID, #1 INHALER 3 Refills Guaifenesin La (Guaifenesin Er) 600 Mg Tabcr 600 MG PO DAILY, TAB Ipratropium-Albuterol (Duoneb) 3 Ml Nebu 1 TREATMENT INH Q4H PRN for sob/wheezing, INHA Losartan Potassium (Cozaar) 25 Mg Tab 12.5 MG PO DAILY, TAB Metoprolol Succ (Toprol Xl) (Toprol-Xl ) 100 Mg Tabcr 100 MG PO DAILY Ranitidine (Zantac) 150 Mg Tab 150 MG PO BID Roflumilast (Daliresp) 500 Mcg Tab 500 MCG PO QAM Tamsulosin Hcl (Flomax) 0.4 Mg Cap 0.4 MG PO DAILY Tiotropium [place] (Spiriva Handihaler) 18 Mcg/ Aerp 1 CAP INH HS, INHALER Warfarin Sod (Jantoven) 2.5 Mg Tab 5 MG PO 2XWK, TAB TAKE 2 TABS EVERY MONDAY AND MONDAY. Warfarin Sod (Jantoven) 2.5 Mg Tab 3.7 MG PO 5XWK, TAB 1 1/2 TABLET DOSE TAKE 3.7MG EVERY MONDAY/MONDAY/MONDAY/MONDAY/MONDAY. Discontinued Medications: Amoxicillin & Pot Clavulanate (Augmentin 875-125 mg) 1 Tab Tab 1 TAB PO BID for Rescue kit:1tab Q12hrs x7days, #14 TAB Prednisone (Prednisone) 20 Mg Tab 1 TAB PO DAILY for Resue kit: 2 tabs daily/5days for 5 Days, #5 TAB Admission Information HPI (per Admitting provider): The patient is a 72-year-old man who presents to the ER with reports of shortness of breath that began earlier this evening. The patient reports a chronic cough with no changes in recent days but does state that he had cold symptoms however he cannot clarify what those cold symptoms were. He does report some runny nose. He states his breathing became tight after exposure to cold air this evening. On presentation to the ER his oxygen saturation was 86% on room air in a patient not on supplemental oxygen at baseline. He reports his last exacerbation was approximately 6 months ago and was handled as an outpatient with a rescue kit. He denies recent hospitalization. He did have a recent CABG surgery in [place] with bioprosthetic aortic valve replacement. At that time he quit smoking cigarettes. Review of systems is otherwise negative for chest pain abdominal pain diarrhea nausea vomiting, sore throat, sinus congestion, or headaches. Physical Exam (per Admitting): General Appearance: WD/WN, no apparent distress Head: normocephalic, atraumatic Eyes: normal inspection, PERRL, sclerae normal, + pertinent finding (Eyes appear irritated) ENT: normal ENT inspection, TMs normal, pharynx normal Neck: supple, no adenopathy, no JVD, no carotid bruits, trachea midline Respiratory/Chest: chest non-tender, normal breath sounds, no respiratory distress, no accessory muscle use, + wheezing, + pertinent finding (Decreased breath sounds bilaterally) Cardiovascular: regular rate, rhythm, no edema, no gallop, no JVD, no murmur , normal peripheral pulses Abdomen/GI: normal bowel sounds, non tender, soft, no organomegaly Extremities/Musculoskelatal: normal inspection, no calf tenderness, normal capillary refill, no pedal edema, normal range of motion 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 Chest X ray on admission: Slight bilateral interstitial prominence. No focal infiltrate. Prior median sternotomy Patient subsequently admitted to the hospital. Patient feeling better after solumedrol and nebulizer treatments and since the morning time on 06/09/17 is breathing on room air Discharge diagnosis COPD exacerbation CAD status post CABG-PCI in the past, stable no chest pain Chronic atrial fibrillation-rate controlled on beta-everette, anticoagulated on Coumadin. Patient discharged with prescription for prednisone and levofloxacin and follow up appointments Follow up appointments 06/14/2017 2:00 PM Doyle Dawn MD Internal Medicine [facility] 06/26/2017 2:45 PM [facility] 07/11/2017 2:00 PM SANTOS Pena Pulmonary Medicine, [facility] please call [facility] appointment line [phone] if appointments need to be re-scheduled Total time spent on discharge = 60 minutes This includes examination of the patient, discharge planning, medication reconciliation, and communication with other providers. Discharge Instructions see above
[2017-06-09] MEDS ORDERED: ATORVASTATIN 40 MG TAB PO SCH (21:00)
[2017-06-09] MEDS ORDERED: TIOTROPIUM BROMIDE 5 PUFF/90 MCG INH INH SCH (22:00)
[2017-06-10] MEDS ORDERED: WARFARIN SOD 1.25 MG TAB PO SCH (16:00)
== END 2017-06-09 16:25 | disposition home or self-care (01) | DRG 192 ==
LOC: EDBD 22:45 → C.EDA 22:46 → C.MS4W 06-09 00:48 → ENRESERV 06-09 01:17
PROVIDERS: ADMIT Hospitalist; ATTEND Hospitalist
DX: J44.1 Chronic obstructive pulmonary disease with (acute) exacerbation (principal); I25.10 Atherosclerotic heart disease of native coronary artery without angina pectoris; Z95.1 Presence of aortocoronary bypass graft; I48.2 Chronic atrial fibrillation; Z79.82 Long term (current) use of aspirin; Z83.3 Family history of diabetes mellitus; Z88.1 Allergy status to other antibiotic agents; Z79.01 Long term (current) use of anticoagulants; F17.200 Nicotine dependence, unspecified, uncomplicated